=== PATIENT | female | born 1985 | race African-American/Black ===

== ENCOUNTER 2018-03-01 18:37 | Emergency (ER) | payer MEDICAID, OTHER ==
[~2018-03-01] VITALS: Ht 165.1 cm; Wt 99.8 kg
[~2018-03-01 18:37] MED LIST: METH-37 PO; TRAM-48 PO
[2018-03-01 19:00] VITALS: BP 144/85
[2018-03-01] MEDS ORDERED: LIDOCAINE WITH 8.4% SOD BICARB 3 ML DISP.SYRIN. INJ ONE (19:30)
[2018-03-01] MEDS ORDERED: TRAM-48 PO (20:22)
[2018-03-01] MEDS ORDERED: SULF1TAB24 PO (20:22)
--- NOTE | 2018-03-01 20:23 | PHYS DOC ---
Past Medical History Past Medical History: Asthma Past Surgical History: Tubal ligation Alcohol Use: Occasionally Drug Use: None Adult General Chief Complaint Chief Complaint: FINGER INJURY HPI HPI Patient is a 32 year old female who presents with infection to the right middle finger that began one week ago. Patient denies any fever. Review of Systems Review of Systems Constitutional: Denies fever or chills [] Musculoskeletal: Denies back pain or joint pain [] Integument: infection to the right middle finger Neurologic: Denies headache, focal weakness or sensory changes [] All other systems were reviewed and found to be within normal limits, except as documented in this note. Current Medications Current Medications Current Medications Medications (Trade) Dose Ordered Sig/Sergio Start Time Stop Time Status Last Admin Dose Admin Lidocaine/Sodium Bicarbonate (Buffered Lidocaine 1%) 3 ml 1X ONCE 03/01/18 19:30 03/01/18 19:31 DC Allergies Allergies Allergies Coded Allergies Type Severity Reaction Last Updated Verified No Known Drug Allergies 05/01/14 No Physical Exam Physical Exam Constitutional: Well developed, well nourished, no acute distress, non-toxic appearance. [] Skin: Warm, dry, right middle finger with mild induration surrounding the nailbed. There is erythema over the area. The area is warm tender to touch and very fluctuant. Back: No tenderness, no CVA tenderness. [] Extremities: No tenderness, no cyanosis, no clubbing, ROM intact, no edema. [] Neurologic: Alert and oriented X 3, normal motor function, normal sensory function, no focal deficits noted. [] Psychologic: Affect normal, judgement normal, mood normal. [] Current Patient Data Vital Signs Vital Signs Date Time Temp Pulse Resp B/P (MAP) Pulse Ox O2 Delivery O2 Flow Rate FiO2 03/01/18 19:00 98.9 88 12 144/85 (104) 100 Room Air 98.9 EKG EKG [] Radiology/Procedures Radiology/Procedures Indication: Paronychia right middle finger Procedure: The patient was positioned appropriately. Local anesthesia was buffered lidocaine. An incision was then made over the apex of the lesion and small amount of yellow bloody material was expressed. The drainage cavity was irrigated and covered with sterile gauze. The patients tetanus status updated as needed. The patient tolerated the procedure well. Complications: none.[] Course & Med Decision Making Course & Med Decision Making Pertinent Labs and Imaging studies reviewed. (See chart for details) Patient has paronychia infection to the right middle finger that was drained by me. Discharged Bactrim. Tetanus up-to-date. Follow-up with PCP in 1-2 weeks as needed. Dragon Disclaimer Dragon Disclaimer This electronic medical record was generated, in whole or in part, using a voice recognition dictation system. Departure Departure Impression: Primary Impression: Paronychia of right middle finger Disposition: HOME, SELF-CARE Condition: STABLE Referrals: ANTELMO CLAROS MD (PCP) follow up with your doctor in 1 week Patient Instructions: Paronychia, [id number] Additional Instructions: You have paronychia infection to the right middle finger that was drained. Soak the finger in warm water with Epsom salts twice a day. Take the prescribed antibiotics until completed. Follow-up with your doctor in one week. Scripts Tramadol Hcl (ULTRAM) 50 Mg Tablet 50 MG PO Q6HRS PRN for PAIN, #20 TAB 0 Refills Prov: QUETA SCHUMACHER APRN 03/01/18 Sulfamethoxazole/Trimethoprim (BACTRIM DS TABLET) 1 Each Tablet 1 TAB PO BID, #20 TAB Prov: QUETA SCHUMACHER APRN 03/01/18 QUETA SCHUMACHER APRN Mar 01, 2018 20:22
== END 2018-03-01 20:33 | disposition home or self-care (01) ==
LOC: ER 18:37
DX: L03.011 Cellulitis of right finger (principal); J45.909 Unspecified asthma, uncomplicated
CPT/HCPCS: 10060; 99283-25

== ENCOUNTER 2018-06-04 11:02 | Emergency (ER) | payer OTHER ==
[~2018-06-04] VITALS: Ht 165.1 cm; Wt 99.8 kg
[~2018-06-04 11:02] MED LIST changes: +SULF1TAB24 PO
[2018-06-04 11:23] VITALS: BP 152/85
[2018-06-04] MEDS ORDERED: methylPREDNISolone SOD SUCC PF 125 MG/2 ML VIAL. IM ONE (12:15)
[2018-06-04] MEDS ORDERED: KETOROLAC 60 MG/2 ML INJ. IM ONE (12:15)
--- NOTE | 2018-06-04 12:15 | PHYS DOC ---
Past Medical History Past Medical History: Asthma Past Surgical History: Tubal ligation, Other Additional Past Surgical Histo: ACHILLES TENDON REPAIR Additional Information: 0.5 TO 1 PPD Alcohol Use: Occasionally Drug Use: None Adult General Chief Complaint Chief Complaint: HEADACHE HPI HPI Patient is a 32 year old female with history of asthma who presents today complaining of 8 out of 10 frontal headache described as throbbing and intermittent that has been going on for the last 3 days. Patient states the headache was a gradual onset. She states she's had similar headaches before. She states she is taking Tylenol with minimal relief. She is also complaining of intermittent episodes of nausea and vomiting. She states she missed work for 3 days and would like a note for work. Review of Systems Review of Systems Constitutional: Denies fever or chills [] Eyes: Denies change in visual acuity, redness, or eye pain [] HENT: Denies nasal congestion or sore throat [] Respiratory: Denies cough or shortness of breath [] Cardiovascular: No additional information not addressed in HPI [] GI: Reports nausea and vomiting, denies abdominal pain,bloody stools or diarrhea [] : Denies dysuria or hematuria [] Musculoskeletal: Denies back pain or joint pain [] Integument: Denies rash or skin lesions [] Neurologic: Reports headache, denies focal weakness or sensory changes [] All other systems were reviewed and found to be within normal limits, except as documented in this note. Current Medications Current Medications Current Medications Medications (Trade) Dose Ordered Sig/Sergio Start Time Stop Time Status Last Admin Dose Admin Ketorolac Tromethamine (Toradol Im) 60 mg 1X ONCE 06/04/18 12:15 06/04/18 12:16 DC 06/04/18 12:20 60 MG Magnesium Citrate (Citroma) 296 ml 1X ONCE 06/04/18 12:30 06/04/18 12:31 Cancel Methylprednisolone Sodium Succinate (SOLU-Medrol 125MG VIAL) 125 mg 1X ONCE 06/04/18 12:15 06/04/18 12:16 DC 06/04/18 12:20 125 MG Allergies Allergies Allergies Coded Allergies Type Severity Reaction Last Updated Verified No Known Drug Allergies 05/01/14 No Physical Exam Physical Exam Constitutional: Well developed, well nourished, no acute distress, non-toxic appearance. [] HENT: Normocephalic, atraumatic, bilateral external ears normal, oropharynx moist, no oral exudates, nose normal. [] Eyes: PERRLA, EOMI, conjunctiva normal, no discharge. [] Neck: Normal range of motion, no tenderness, supple, no stridor. [] Cardiovascular:Heart rate regular rhythm, no murmur [] Lungs & Thorax: Bilateral breath sounds clear to auscultation [] Abdomen: Bowel sounds normal, soft, no tenderness, no masses, no pulsatile masses. [] Skin: Warm, dry, no erythema, no rash. [] Back: No tenderness, no CVA tenderness. [] Extremities: No tenderness, no cyanosis, no clubbing, ROM intact, no edema. [] Neurologic: Alert and oriented X 3, normal motor function, normal sensory function, no focal deficits noted. Cranial nerves II through XII intact Psychologic: Affect normal, judgement normal, mood normal. [] Current Patient Data Vital Signs Vital Signs Date Time Temp Pulse Resp B/P (MAP) Pulse Ox O2 Delivery O2 Flow Rate FiO2 06/04/18 11:23 98.4 77 17 152/85 (107) 99 Room Air 98.4 Lab Values Laboratory Tests Test 06/04/18 12:13 POC Urine HCG, Qualitative Hcg negative (Negative) EKG EKG [] Radiology/Procedures Radiology/Procedures [] Course & Med Decision Making Course & Med Decision Making Pertinent Labs and Imaging studies reviewed. (See chart for details) This is a 32-year-old female patient presenting to the ED today with a migraine headache. Patient was given Solu-Medrol and Toradol IM. Discharged with Imitrex. Follow-up with PCP in 1-2 weeks. Note for work provided. Dragon Disclaimer Dragon Disclaimer This electronic medical record was generated, in whole or in part, using a voice recognition dictation system. Departure Departure Impression: Primary Impression: Migraine headache Disposition: 01 HOME, SELF-CARE Condition: STABLE Referrals: ANTELMO CLAROS MD (PCP) Follow-up in 1-2 weeks Patient Instructions: Migraine Headache Additional Instructions: You were evaluated in the emergency room with a migraine headache. We put you on medications, take them as needed. Scripts Sumatriptan Succinate (IMITREX) 50 Mg Tablet 1 TAB PO UD, #9 TAB 1 Refill Prov: ENDYQUETA APRN 06/04/18 Ondansetron Hcl (ZOFRAN) 4 Mg Tablet 1 TAB PO Q6HRS, #20 TAB Prov: QUETA SCHUMACHER APRN 06/04/18 Problem Qualifiers Primary Impression: Migraine headache Migraine type: without aura Status migrainosus presence: without status migrainosus Intractability: not intractable Qualified Codes: G43.009 - Migraine without aura, not intractable, without status migrainosus QUETA SCHUMACHER APRN Jun 04, 2018 12:15
[2018-06-04] MEDS ORDERED: ONDA4TAB7 PO (12:20)
[2018-06-04] MEDS ORDERED: SUMA50TA3 PO (12:20)
[2018-06-04] MEDS ORDERED: MAGNESIUM CITRATE 296 ML SOLUTION. PO ONE (12:30)
== END 2018-06-04 12:30 | disposition home or self-care (01) ==
LOC: ER 11:02
DX: G43.009 Migraine without aura, not intractable, without status migrainosus (principal); J45.909 Unspecified asthma, uncomplicated; F17.200 Nicotine dependence, unspecified, uncomplicated
CPT/HCPCS: 81025; 96372; 99283; J1885; J2930